=== PATIENT | male | born 1970 | race African-American/Black ===

== ENCOUNTER 2021-11-30 23:15 | Inpatient (IN) | payer OTHER, MEDICAID ==
[~2021-11-30] VITALS: Ht 188 cm; Wt 139.7 kg
[2021-11-30] MEDS ORDERED: IPRATROPIUM BROMIDE (0.02%) 0.5MG/2.5ML NEB HHN STA (23:35)
[2021-11-30] MEDS ORDERED: MAGNESIUM 2 G PREMIX 50 ML IV ONE (23:45)
[2021-11-30] MEDS: ALBUTEROL (0.083%) 2.5MG/3ML NEB HHN SCH (23:52)
[2021-12-01] VITALS (37 sets, daily range): BP systolic 130–189; BP diastolic 74–95
[2021-12-01] MEDS ORDERED: ONDANSETRON HCL 4MG/2ML INJ IV ONE (00:15)
[2021-12-01] MEDS ORDERED: MORPHINE SULFATE 4 MG/ML CPJ (NOT FOR IM USE) IV ONE (00:15)
[2021-12-01 00:35] LABS: BASOPHILS % 0.6 % (0.0-2.0); EOSINOPHILS % 0.8 % (0.0-5.0); HEMATOCRIT. 35.6 % (42.0-52.0); HEMOGLOBIN. 11.7 g/dL (14.0-18.0); MEAN CORPUSCULAR HEMOGLOBIN 28.7 pg (28.0-32.0); MEAN CORPUSCULAR VOLUME 86.8 fL (80.0-94.0); MEAN PLATELET VOLUME 8.8 fl (7.4-10.4); MONOCYTES % 7.1 % (2.0-8.0); NEUTROPHILS % 81.5 % (40.0-76.0); PLATELET 378 x1000/uL (130-400); RED CELL DISTRIBUTION WIDTH 15.1 % (11.6-14.6)
[2021-12-01 00:42] LABS: CHLORIDE 109 mEq/L (98-107)
[2021-12-01 00:58] LABS: BG CARBOXYHEMOGLOBIN 0.1 % (0.5-1.5); BG DEOXYHEMOGLOBIN 1.3 % (0.0-5.0); BG FRACTION INSPIRED OXYGEN 60; BG HCO3 ACT 20.3 mmol/L (22.0-26.0); BG METHEMOGLOBIN 0.5 % (0.0-1.5); BG OXYGEN SATURATION 98.7 % (92.0-98.5); BG OXYHEMOGLOBIN 98.1 % (94.0-97.0); BG PCO2 43.3 mmHg (35.0-45.0); BG PH 7.289 (7.350-7.450); BG SAMPLE SITE RIGHT RADIAL; BG TOTAL HEMOGLOBIN 11.4 g/dL (12.0-18.0); BG VENT MODE T PIECE
[2021-12-01] MEDS ORDERED: PIPERACILLIN/TAZ 3.375G PREMIX 50 ML IV ONE (02:00)
[2021-12-01] MEDS ORDERED: VANCOMYCIN 1G PREMIX 200 ML IV ONE (02:00)
[2021-12-01] MEDS ORDERED: NOREPINEPHRINE 8 MG in DEXT 5% WATER 242 ML IV PRN ×2 (07:30→08:00)
[2021-12-01] MEDS ORDERED: ACETAMINOPHEN 325MG TABLET PO PRN ×2 (07:30)
[2021-12-01] MEDS ORDERED: DEXT 5%/LACTATED RINGERS 1,000 ML IV SCH (07:30)
[2021-12-01] MEDS ORDERED: ONDANSETRON HCL 4MG/2ML INJ IV PRN (07:30)
[2021-12-01] MEDS ORDERED: GUAIFENESIN 200MG/10ML SUGAR FREE UDC PO PRN (07:30)
[2021-12-01] MEDS ORDERED: DEXTROSE 50% WATER 50ML SYRINGE IV PRN (07:30)
[2021-12-01] MEDS ORDERED: KETOROLAC 15MG/ML VIAL IV PRN (07:30)
[2021-12-01] MEDS ORDERED: NITROGLYCERIN 0.4MG TABLET SL SL PRN (07:30)
[2021-12-01] MEDS ORDERED: DOCUSATE SODIUM 100MG CAPSULE PO PRN (07:30)
[2021-12-01] MEDS ORDERED: MAGNESIUM/ALUMINUM HYDROXIDE/SIMETHICONE 30ML UDC PO PRN (07:30)
[2021-12-01] MEDS ORDERED: ALBUTEROL 6.7GM HFA INHALER ORI PRN (07:30)
[2021-12-01] MEDS ORDERED: VANCOMYCIN 1G PREMIX 200 ML IV NR (08:15)
[2021-12-01] MEDS ORDERED: ETOMIDATE 2MG/ML 10ML VIAL IV ONE (08:16)
[2021-12-01] MEDS ORDERED: SODIUM CHLORIDE 0.9% 10ML VIAL ONE (08:16)
[2021-12-01] MEDS: ENOXAPARIN 40MG/0.4ML SYR SUBCUT SCH (08:26)
[2021-12-01] MEDS: BLOOD SUGAR DIAGNOSTIC STRIP TEST SCH ×4 (08:34→20:45)
[2021-12-01] MEDS: CLONIDINE 0.1MG TABLET PO PRN ×2 (08:43→18:27)
[2021-12-01] MEDS: ASPIRIN 325MG EC TABLET PO SCH (09:00)
[2021-12-01] MEDS ORDERED: PIPERACILLIN/TAZ 3.375G PREMIX 50 ML IV SCH (09:00)
[2021-12-01] MEDS: INSULIN LISPRO 100 UNITS/ML SUBCUT SCH ×4 (09:15→20:44)
[2021-12-01] MEDS: LISINOPRIL 20MG TABLET PO SCH ×2 (09:18→20:44)
[2021-12-01] MEDS: ZINC SULFATE 220 MG ( 50 ) CAPSULE PO SCH (09:20)
[2021-12-01] MEDS: CHOLECALCIFEROL (D3) 1000 UNIT TABLET PO SCH (09:26)
[2021-12-01] MEDS: PANTOPRAZOLE SODIUM 40 MG/VIAL IV SCH (09:30)
[2021-12-01 09:35] LABS: *AMPHETAMINES SCREEN URINE NEGATIVE (NEGATIVE); *BARBITURATES SCREEN URINE NEGATIVE (NEGATIVE); *BENZODIAZEPINES SCREEN URINE NEGATIVE (NEGATIVE); *COCAINE SCREEN URINE NEGATIVE (NEGATIVE); METHADONE URINE SCREEN NEGATIVE (NEGATIVE)
[2021-12-01 09:36] LABS: CANNABINOID URINE SCREEN NEGATIVE (NEGATIVE); OPIATES URINE SCREEN PRESUMTIVE POSITIVE (NEGATIVE); PHENCYCLIDINE URINE SCREEN NEGATIVE (NEGATIVE)
[2021-12-01] MEDS: ASCORBIC ACID 500 MG TABLET PO SCH ×2 (09:44→20:44)
[2021-12-01 10:26] LABS: FOLIC ACID (FOLATE) SERUM >20 ng/mL ng/mL (>5.38)
[2021-12-01 10:39] LABS: VITAMIN B12 SERUM 1910 pg/mL (211-911)
[2021-12-01] MEDS ORDERED: IPRATROPIUM/ALBUTEROL 0.5-3(2.5)MG/3ML NEB HHN PRN (12:45)
[2021-12-01 13:43] LABS: PHOSPHORUS 3.5 mg/dL (2.5-4.9)
[2021-12-01] MEDS: ACETYLCYSTEINE 100MG/ML 10% VIAL 4ML INH SCH (16:40)
[2021-12-01] MEDS: IPRATROPIUM/ALBUTEROL 0.5-3(2.5)MG/3ML NEB HHN SCH ×2 (16:41→20:08)
[2021-12-01] MEDS ORDERED: HYDR100T31 PO (17:47)
[2021-12-01] MEDS ORDERED: OMEP20CA14 PO (17:47)
[2021-12-01] MEDS ORDERED: ALLO100T PO (17:47)
[2021-12-01] MEDS ORDERED: ISOS30TA91 PO (17:47)
[2021-12-01] MEDS ORDERED: FURO40TA5 PO (17:47)
[2021-12-01] MEDS ORDERED: AMLO10TA80 PO (17:47)
[2021-12-01] MEDS ORDERED: SEVE2.4P3 PO (17:47)
[2021-12-01] MEDS ORDERED: APIX5TAB PO (17:47)
[2021-12-01] MEDS ORDERED: ATOR40TA70 PO (17:47)
[2021-12-01] MEDS ORDERED: ALBU2.5V13 NEB (17:47)
[2021-12-01] MEDS ORDERED: BLOO-1104 (17:50)
[2021-12-01] MEDS ORDERED: DICL100G31 TP (17:50)
[2021-12-01] MEDS ORDERED: BLOO-1618 (17:50)
[2021-12-01] MEDS ORDERED: POLY119P2 PO (17:50)
[2021-12-01] MEDS ORDERED: NPH,100I SUBCUT (17:50)
[2021-12-01] MEDS ORDERED: LANC-1022 (17:50)
[2021-12-01] MEDS ORDERED: BLOO-1065 XX (17:50)
[2021-12-01] MEDS ORDERED: HYDR-4001 PO (17:50)
[2021-12-01] MEDS: SEVELAMER CARBONATE 800 MG TABLET PO SCH (18:21)
[2021-12-01] MEDS ORDERED: ASPI-1497 MT (19:55)
[2021-12-01] MEDS ORDERED: MULT-1116 MT (19:55)
[2021-12-01] MEDS ORDERED: CHOL400D7 MT (19:55)
[2021-12-01] MEDS ORDERED: ZOLPIDEM TARTRATE 5MG TABLET PO PRN (21:00)
[2021-12-01] MEDS: PIPERACILLIN/TAZOBACTAM 3.375 G in DEXTROSE 5% WATER 50 ML IV SCH (21:55)
[2021-12-02] VITALS (73 sets, daily range): BP systolic 133–219; BP diastolic 71–116
[2021-12-02] MEDS: ACETYLCYSTEINE 100MG/ML 10% VIAL 4ML INH SCH ×3 (00:16→16:40)
[2021-12-02] MEDS: IPRATROPIUM/ALBUTEROL 0.5-3(2.5)MG/3ML NEB HHN SCH ×6 (00:16→20:22)
[2021-12-02 06:04] LABS: BASOPHILS % 0.4 % (0.0-2.0); EOSINOPHILS % 1.2 % (0.0-5.0); HEMATOCRIT. 26.5 % (42.0-52.0); HEMOGLOBIN. 8.9 g/dL (14.0-18.0); LYMPHOCYTES % 12.7 % (20.0-50.0); MEAN CORPUSCULAR VOLUME 89.8 fL (80.0-94.0); MEAN PLATELET VOLUME 8.9 fl (7.4-10.4); MONOCYTES % 10.2 % (2.0-8.0); NEUTROPHILS % 75.5 % (40.0-76.0); PLATELET 338 x1000/uL (130-400); RED BLOOD CELL COUNT 2.95 mill/uL (4.7-6.1); RED CELL DISTRIBUTION WIDTH 15.2 % (11.6-14.6)
[2021-12-02 06:18] LABS: CHLORIDE 112 mEq/L (98-107)
[2021-12-02 06:32] LABS: CREATINE KINASE 112 IU/L (39-308); CREATINE KINASE MB FRACTION < 1.0 ng/mL (0.5-3.6); PHOSPHORUS 3.6 mg/dL (2.5-4.9)
[2021-12-02] MEDS: FOLIC ACID/VITAMIN B COMP W-C TABLET PO SCH (08:27)
[2021-12-02] MEDS: ASCORBIC ACID 500 MG TABLET PO SCH ×2 (08:27→20:42)
[2021-12-02] MEDS: PANTOPRAZOLE SODIUM 40 MG/VIAL IV SCH (08:27)
[2021-12-02] MEDS: ZINC SULFATE 220 MG ( 50 ) CAPSULE PO SCH (08:29)
[2021-12-02] MEDS ORDERED: LORAZEPAM 2MG/ML CPJ IV SCH (08:30)
[2021-12-02] MEDS: SEVELAMER CARBONATE 800 MG TABLET PO SCH ×3 (08:50→17:30)
[2021-12-02] MEDS: CHOLECALCIFEROL (D3) 1000 UNIT TABLET PO SCH (08:50)
[2021-12-02] MEDS: ASPIRIN 325MG EC TABLET PO SCH (08:50)
[2021-12-02] MEDS: LISINOPRIL 20MG TABLET PO SCH ×2 (08:50→20:42)
[2021-12-02] MEDS: ENOXAPARIN 40MG/0.4ML SYR SUBCUT SCH (08:52)
[2021-12-02] MEDS: PIPERACILLIN/TAZOBACTAM 3.375 G in DEXTROSE 5% WATER 50 ML IV SCH ×2 (08:53→20:42)
[2021-12-02] MEDS ORDERED: PROPOFOL 200MG/20ML VIAL IV NR (10:15)
[2021-12-02] MEDS: BLOOD SUGAR DIAGNOSTIC STRIP TEST SCH ×3 (11:30→20:48)
[2021-12-02] MEDS: INSULIN LISPRO 100 UNITS/ML SUBCUT SCH ×3 (11:36→20:53)
[2021-12-02] MEDS: DEXAMETHASONE 10 MG/ML VIAL IV SCH (11:38)
[2021-12-02 18:41] LABS: HEPATITIS B SURFACE ANTIGEN NEGATIVE
[2021-12-02] MEDS ORDERED: VANCOMYCIN 750 MG in DEXT 5% WATER 250 ML IV NR (21:00)
[2021-12-03] VITALS (68 sets, daily range): BP systolic 166–207; BP diastolic 70–107
[2021-12-03] MEDS: IPRATROPIUM/ALBUTEROL 0.5-3(2.5)MG/3ML NEB HHN SCH ×6 (00:21→21:23)
[2021-12-03] MEDS: ACETYLCYSTEINE 100MG/ML 10% VIAL 4ML INH SCH ×3 (00:21→15:46)
[2021-12-03] MEDS: BLOOD SUGAR DIAGNOSTIC STRIP TEST SCH ×4 (06:35→20:44)
[2021-12-03] MEDS: INSULIN LISPRO 100 UNITS/ML SUBCUT SCH ×4 (07:00→20:27)
[2021-12-03] MEDS: SEVELAMER CARBONATE 800 MG TABLET PO SCH ×3 (07:30→17:11)
[2021-12-03] MEDS ORDERED: HYDRALAZINE HCL 25MG TABLET PO SCH (08:00)
[2021-12-03 08:33] LABS: BG BASE EXCESS -2.4 mmol/L (-2.0-2.0); BG CARBOXYHEMOGLOBIN 0.4 % (0.5-1.5); BG DEOXYHEMOGLOBIN 0.7 % (0.0-5.0); BG HCO3 ACT 21.5 mmol/L (22.0-26.0); BG METHEMOGLOBIN 0.4 % (0.0-1.5); BG OXYGEN SATURATION 99.3 % (92.0-98.5); BG OXYHEMOGLOBIN 98.5 % (94.0-97.0); BG PCO2 33.5 mmHg (35.0-45.0); BG PH 7.426 (7.350-7.450); BG PO2 170.5 mmHg (75.0-100.0); BG SAMPLE SITE RIGHT BRACHIAL; BG TOTAL HEMOGLOBIN 9.2 g/dL (12.0-18.0); BG VENT MODE VENT - CPAP
[2021-12-03] MEDS: PIPERACILLIN/TAZOBACTAM 3.375 G in DEXTROSE 5% WATER 50 ML IV SCH ×3 (09:00→20:24)
[2021-12-03] MEDS: ZINC SULFATE 220 MG ( 50 ) CAPSULE PO SCH (09:28)
[2021-12-03] MEDS: DEXAMETHASONE 10 MG/ML VIAL IV SCH (09:28)
[2021-12-03] MEDS: PANTOPRAZOLE SODIUM 40 MG/VIAL IV SCH (09:28)
[2021-12-03] MEDS: FOLIC ACID/VITAMIN B COMP W-C TABLET PO SCH (09:29)
[2021-12-03] MEDS: AMLODIPINE 10MG TABLET PO SCH (09:29)
[2021-12-03] MEDS: ASPIRIN 325MG EC TABLET PO SCH (09:29)
[2021-12-03] MEDS: LISINOPRIL 20MG TABLET PO SCH (09:29)
[2021-12-03] MEDS: ASCORBIC ACID 500 MG TABLET PO SCH ×2 (09:29→20:24)
[2021-12-03] MEDS: CHOLECALCIFEROL (D3) 1000 UNIT TABLET PO SCH (09:29)
[2021-12-03] MEDS: HYDRALAZINE HCL 50MG TABLET PO SCH ×3 (12:01→23:28)
[2021-12-03] MEDS ORDERED: TUBERCULIN,PURIF.PROT.DERIV. 5 TU/0.1 ML SYR ID ONE (18:00)
[2021-12-03] MEDS: CLONIDINE 0.1MG TABLET PO PRN (18:20)
[2021-12-04] VITALS (47 sets, daily range): BP systolic 159–213; BP diastolic 79–108
[2021-12-04] MEDS: ACETYLCYSTEINE 100MG/ML 10% VIAL 4ML INH SCH ×2 (00:45→08:35)
[2021-12-04] MEDS: IPRATROPIUM/ALBUTEROL 0.5-3(2.5)MG/3ML NEB HHN SCH ×3 (00:45→08:43)
[2021-12-04] MEDS: BLOOD SUGAR DIAGNOSTIC STRIP TEST SCH ×4 (06:29→21:16)
[2021-12-04] MEDS: HYDRALAZINE HCL 50MG TABLET PO SCH ×3 (06:32→19:05)
[2021-12-04] MEDS: INSULIN LISPRO 100 UNITS/ML SUBCUT SCH ×4 (06:33→21:16)
[2021-12-04] MEDS: AMLODIPINE 10MG TABLET PO SCH (08:39)
[2021-12-04] MEDS: FOLIC ACID/VITAMIN B COMP W-C TABLET PO SCH (08:39)
[2021-12-04] MEDS: ASPIRIN 325MG EC TABLET PO SCH (08:40)
[2021-12-04] MEDS: DEXAMETHASONE 10 MG/ML VIAL IV SCH (08:40)
[2021-12-04] MEDS: CHOLECALCIFEROL (D3) 1000 UNIT TABLET PO SCH (08:40)
[2021-12-04] MEDS: SEVELAMER CARBONATE 800 MG TABLET PO SCH ×3 (08:40→19:01)
[2021-12-04] MEDS: LISINOPRIL 20MG TABLET PO SCH (08:40)
[2021-12-04] MEDS: ASCORBIC ACID 500 MG TABLET PO SCH ×2 (08:40→21:16)
[2021-12-04] MEDS: ZINC SULFATE 220 MG ( 50 ) CAPSULE PO SCH (08:40)
[2021-12-04] MEDS: PANTOPRAZOLE SODIUM 40 MG/VIAL IV SCH (08:42)
[2021-12-04] MEDS: PIPERACILLIN/TAZOBACTAM 3.375 G in DEXTROSE 5% WATER 50 ML IV SCH ×2 (10:08→22:51)
[2021-12-04 12:18] LABS: HEMATOCRIT. 25.7 % (42.0-52.0); HEMOGLOBIN. 8.4 g/dL (14.0-18.0); MEAN CORPUSCULAR HEMOGLOBIN 28.2 pg (28.0-32.0); MEAN PLATELET VOLUME 8.7 fl (7.4-10.4); PLATELET 376 x1000/uL (130-400); RED BLOOD CELL COUNT 2.98 mill/uL (4.7-6.1); RED CELL DISTRIBUTION WIDTH 15.6 % (11.6-14.6)
[2021-12-04 13:26] LABS: PLATELET ESTIMATE NORMAL
[2021-12-04] MEDS: ALBUTEROL 6.7GM HFA INHALER ORI SCH ×2 (15:00→22:05)
[2021-12-04] MEDS ORDERED: VANCOMYCIN 1G PREMIX 200 ML IV NR (18:00)
[2021-12-04] MEDS: CLONIDINE 0.1MG TABLET PO PRN (19:06)
[2021-12-04] MEDS: DOXAZOSIN MESYLATE 4MG TABLET PO SCH (19:07)
[2021-12-05] VITALS: BP_SYST 158; BP_SYST 178; BP_DIAS 74
[2021-12-05] MEDS: ALBUTEROL 6.7GM HFA INHALER ORI SCH ×4 (00:06→20:42)
[2021-12-05] MEDS: HYDRALAZINE HCL 50MG TABLET PO SCH ×5 (00:06→23:50)
[2021-12-05 04:00] VITALS: BP 155/77
[2021-12-05] MEDS: BLOOD SUGAR DIAGNOSTIC STRIP TEST SCH ×4 (07:22→21:03)
[2021-12-05] MEDS: PIPERACILLIN/TAZOBACTAM 3.375 G in DEXTROSE 5% WATER 50 ML IV SCH ×2 (08:58→20:28)
[2021-12-05] MEDS: PANTOPRAZOLE SODIUM 40 MG/VIAL IV SCH (08:59)
[2021-12-05] MEDS: DEXAMETHASONE 10 MG/ML VIAL IV SCH (08:59)
[2021-12-05] MEDS: ASCORBIC ACID 500 MG TABLET PO SCH ×2 (09:00→21:01)
[2021-12-05] MEDS: AMLODIPINE 10MG TABLET PO SCH (09:00)
[2021-12-05] MEDS: SEVELAMER CARBONATE 800 MG TABLET PO SCH ×3 (09:00→18:58)
[2021-12-05] MEDS: LISINOPRIL 20MG TABLET PO SCH (09:00)
[2021-12-05] MEDS: ZINC SULFATE 220 MG ( 50 ) CAPSULE PO SCH (09:00)
[2021-12-05] MEDS: FOLIC ACID/VITAMIN B COMP W-C TABLET PO SCH (09:00)
[2021-12-05] MEDS: ASPIRIN 325MG EC TABLET PO SCH (09:01)
[2021-12-05] MEDS: CHOLECALCIFEROL (D3) 1000 UNIT TABLET PO SCH (09:01)
[2021-12-05] MEDS: INSULIN LISPRO 100 UNITS/ML SUBCUT SCH ×4 (09:03→21:03)
[2021-12-05 12:00] VITALS: BP 163/86
[2021-12-05] MEDS: CLONIDINE 0.1MG TABLET PO PRN (13:28)
[2021-12-05 16:00] VITALS: BP 137/75
[2021-12-05 20:00] VITALS: BP 146/73
[2021-12-05] MEDS: DOXAZOSIN MESYLATE 4MG TABLET PO SCH (21:02)
[2021-12-06] VITALS: BP 148/73
[2021-12-06] MEDS: ALBUTEROL 6.7GM HFA INHALER ORI SCH ×4 (03:00→20:57)
[2021-12-06 04:00] VITALS: BP 138/76
[2021-12-06] MEDS: HYDRALAZINE HCL 50MG TABLET PO SCH ×3 (05:34→17:52)
[2021-12-06] MEDS: BLOOD SUGAR DIAGNOSTIC STRIP TEST SCH ×4 (07:40→20:57)
[2021-12-06 07:59] LABS: BASOPHILS % 0.3 % (0.0-2.0); EOSINOPHILS % 0.1 % (0.0-5.0); HEMATOCRIT. 26.3 % (42.0-52.0); HEMOGLOBIN. 8.7 g/dL (14.0-18.0); MEAN CORPUSCULAR HEMOGLOBIN 28.4 pg (28.0-32.0); MEAN CORPUSCULAR VOLUME 85.8 fL (80.0-94.0); MEAN PLATELET VOLUME 8.4 fl (7.4-10.4); MONOCYTES % 6.9 % (2.0-8.0); NEUTROPHILS % 83.7 % (40.0-76.0); PLATELET 386 x1000/uL (130-400); RED BLOOD CELL COUNT 3.06 mill/uL (4.7-6.1); RED CELL DISTRIBUTION WIDTH 15.2 % (11.6-14.6)
[2021-12-06 08:00] VITALS: BP 163/71
[2021-12-06] MEDS: PANTOPRAZOLE SODIUM 40 MG/VIAL IV SCH (09:32)
[2021-12-06] MEDS: SEVELAMER CARBONATE 800 MG TABLET PO SCH ×3 (09:32→17:52)
[2021-12-06] MEDS: DEXAMETHASONE 10 MG/ML VIAL IV SCH (09:32)
[2021-12-06] MEDS: LISINOPRIL 20MG TABLET PO SCH (09:33)
[2021-12-06] MEDS: ZINC SULFATE 220 MG ( 50 ) CAPSULE PO SCH (09:33)
[2021-12-06] MEDS: ASCORBIC ACID 500 MG TABLET PO SCH ×2 (09:33→20:57)
[2021-12-06] MEDS: FOLIC ACID/VITAMIN B COMP W-C TABLET PO SCH (09:33)
[2021-12-06] MEDS: AMLODIPINE 10MG TABLET PO SCH (09:33)
[2021-12-06] MEDS: CHOLECALCIFEROL (D3) 1000 UNIT TABLET PO SCH (09:33)
[2021-12-06] MEDS: ASPIRIN 325MG EC TABLET PO SCH (09:33)
[2021-12-06] MEDS: CLONIDINE 0.1MG TABLET PO PRN (09:34)
[2021-12-06] MEDS: INSULIN LISPRO 100 UNITS/ML SUBCUT SCH ×4 (09:36→20:57)
[2021-12-06 12:00] VITALS: BP 157/65
[2021-12-06 16:00] VITALS: BP 132/73
[2021-12-06] MEDS ORDERED: VANCOMYCIN 750 MG in DEXT 5% WATER 250 ML IV SCH (19:00)
[2021-12-06 20:00] VITALS: BP 154/75
[2021-12-06] MEDS: DOXAZOSIN MESYLATE 4MG TABLET PO SCH (20:57)
[2021-12-07] VITALS: BP 157/76
[2021-12-07] MEDS: HYDRALAZINE HCL 50MG TABLET PO SCH ×4 (00:39→17:54)
[2021-12-07] MEDS: ALBUTEROL 6.7GM HFA INHALER ORI SCH ×4 (03:00→22:22)
[2021-12-07 04:00] VITALS: BP 153/86
[2021-12-07] MEDS: BLOOD SUGAR DIAGNOSTIC STRIP TEST SCH ×4 (06:31→21:00)
[2021-12-07] MEDS: INSULIN LISPRO 100 UNITS/ML SUBCUT SCH ×4 (06:54→22:21)
[2021-12-07 07:00] LABS: BASOPHILS % 0.1 % (0.0-2.0); EOSINOPHILS % 0.1 % (0.0-5.0); HEMOGLOBIN. 8.2 g/dL (14.0-18.0); LYMPHOCYTES % 10.3 % (20.0-50.0); MEAN CORPUSCULAR HEMOGLOBIN 29.2 pg (28.0-32.0); MEAN CORPUSCULAR VOLUME 88.4 fL (80.0-94.0); MEAN PLATELET VOLUME 8.4 fl (7.4-10.4); MONOCYTES % 8.1 % (2.0-8.0); NEUTROPHILS % 81.4 % (40.0-76.0); PLATELET 388 x1000/uL (130-400); RED BLOOD CELL COUNT 2.83 mill/uL (4.7-6.1); RED CELL DISTRIBUTION WIDTH 15.2 % (11.6-14.6)
[2021-12-07 08:00] VITALS: BP 118/55
[2021-12-07] MEDS: AMLODIPINE 10MG TABLET PO SCH (09:00)
[2021-12-07] MEDS: LISINOPRIL 20MG TABLET PO SCH (09:52)
[2021-12-07] MEDS: SEVELAMER CARBONATE 800 MG TABLET PO SCH ×3 (09:52→17:33)
[2021-12-07] MEDS: FOLIC ACID/VITAMIN B COMP W-C TABLET PO SCH (09:52)
[2021-12-07] MEDS: ASCORBIC ACID 500 MG TABLET PO SCH ×2 (09:52→22:20)
[2021-12-07] MEDS: ZINC SULFATE 220 MG ( 50 ) CAPSULE PO SCH (09:52)
[2021-12-07] MEDS: CHOLECALCIFEROL (D3) 1000 UNIT TABLET PO SCH (09:52)
[2021-12-07] MEDS: ASPIRIN 325MG EC TABLET PO SCH (09:53)
[2021-12-07] MEDS: DEXAMETHASONE 10 MG/ML VIAL IV SCH (09:53)
[2021-12-07] MEDS: PANTOPRAZOLE SODIUM 40 MG/VIAL IV SCH (09:53)
[2021-12-07 12:00] VITALS: BP 120/66
[2021-12-07 16:00] VITALS: BP 133/67
[2021-12-07 20:00] VITALS: BP 147/59
[2021-12-07] MEDS: DOXAZOSIN MESYLATE 4MG TABLET PO SCH (22:19)
[2021-12-08 00:29] VITALS: BP 147/59
[2021-12-08] MEDS: HYDRALAZINE HCL 50MG TABLET PO SCH ×4 (00:35→18:37)
[2021-12-08 04:00] VITALS: BP 144/63
[2021-12-08] MEDS: ALBUTEROL 6.7GM HFA INHALER ORI SCH ×4 (05:10→21:46)
[2021-12-08] MEDS: BLOOD SUGAR DIAGNOSTIC STRIP TEST SCH ×4 (07:36→21:46)
[2021-12-08] MEDS: INSULIN LISPRO 100 UNITS/ML SUBCUT SCH ×4 (07:37→21:46)
[2021-12-08 08:00] VITALS: BP 118/61
[2021-12-08] MEDS: LISINOPRIL 20MG TABLET PO SCH (09:00)
[2021-12-08] MEDS: AMLODIPINE 10MG TABLET PO SCH (09:00)
[2021-12-08] MEDS: FOLIC ACID/VITAMIN B COMP W-C TABLET PO SCH (09:44)
[2021-12-08] MEDS: ASCORBIC ACID 500 MG TABLET PO SCH ×2 (09:44→21:46)
[2021-12-08] MEDS: PANTOPRAZOLE SODIUM 40 MG/VIAL IV SCH (09:44)
[2021-12-08] MEDS: DEXAMETHASONE 10 MG/ML VIAL IV SCH (09:44)
[2021-12-08] MEDS: SEVELAMER CARBONATE 800 MG TABLET PO SCH ×3 (09:44→18:37)
[2021-12-08] MEDS: ZINC SULFATE 220 MG ( 50 ) CAPSULE PO SCH (09:45)
[2021-12-08] MEDS: CHOLECALCIFEROL (D3) 1000 UNIT TABLET PO SCH (09:45)
[2021-12-08] MEDS: ASPIRIN 325MG TABLET PO SCH (11:18)
[2021-12-08 12:00] VITALS: BP 161/76
[2021-12-08 16:00] VITALS: BP 144/74
[2021-12-08 20:00] VITALS: BP 139/63
[2021-12-08] MEDS: EPOETIN ALFA-EPBX 10,000 UNIT/ML VIAL SUBCUT SCH (21:45)
[2021-12-08] MEDS: DOXAZOSIN MESYLATE 4MG TABLET PO SCH (21:46)
[2021-12-09] VITALS: BP 139/70
[2021-12-09] MEDS: ALBUTEROL 6.7GM HFA INHALER ORI SCH ×4 (03:00→19:59)
[2021-12-09 04:00] VITALS: BP 131/65
[2021-12-09] MEDS: HYDRALAZINE HCL 50MG TABLET PO SCH ×5 (06:25→23:38)
[2021-12-09] MEDS: BLOOD SUGAR DIAGNOSTIC STRIP TEST SCH ×4 (08:07→19:59)
[2021-12-09] MEDS: INSULIN LISPRO 100 UNITS/ML SUBCUT SCH ×4 (08:08→19:59)
[2021-12-09] MEDS: DEXAMETHASONE 10 MG/ML VIAL IV SCH (09:08)
[2021-12-09] MEDS: PANTOPRAZOLE SODIUM 40 MG/VIAL IV SCH (09:08)
[2021-12-09] MEDS: LISINOPRIL 20MG TABLET PO SCH (09:09)
[2021-12-09] MEDS: CHOLECALCIFEROL (D3) 1000 UNIT TABLET PO SCH (09:09)
[2021-12-09] MEDS: AMLODIPINE 10MG TABLET PO SCH (09:10)
[2021-12-09] MEDS: ASPIRIN 325MG TABLET PO SCH (09:10)
[2021-12-09] MEDS: FOLIC ACID/VITAMIN B COMP W-C TABLET PO SCH (09:10)
[2021-12-09] MEDS: ASCORBIC ACID 500 MG TABLET PO SCH ×2 (09:10→19:58)
[2021-12-09] MEDS: SEVELAMER CARBONATE 800 MG TABLET PO SCH ×3 (09:42→17:39)
[2021-12-09] MEDS: ZINC SULFATE 220 MG ( 50 ) CAPSULE PO SCH (09:42)
[2021-12-09 11:42] LABS: BASOPHILS % 0.5 % (0.0-2.0); EOSINOPHILS % 0.3 % (0.0-5.0); HEMATOCRIT. 25.9 % (42.0-52.0); HEMOGLOBIN. 8.6 g/dL (14.0-18.0); LYMPHOCYTES % 7.7 % (20.0-50.0); MEAN CORPUSCULAR HEMOGLOBIN 29.1 pg (28.0-32.0); MEAN CORPUSCULAR VOLUME 87.3 fL (80.0-94.0); MONOCYTES % 4.5 % (2.0-8.0); PLATELET 385 x1000/uL (130-400); RED BLOOD CELL COUNT 2.97 mill/uL (4.7-6.1); RED CELL DISTRIBUTION WIDTH 15.5 % (11.6-14.6)
[2021-12-09 12:00] VITALS: BP 152/66
[2021-12-09] MEDS: DOXAZOSIN MESYLATE 4MG TABLET PO SCH (15:00)
[2021-12-09 16:00] VITALS: BP 150/64
[2021-12-09 17:59] VITALS: BP 135/60
[2021-12-09 20:00] VITALS: BP 155/65
[2021-12-10] VITALS (7 sets, daily range): BP systolic 139–160; BP diastolic 62–74
[2021-12-10] MEDS: ALBUTEROL 6.7GM HFA INHALER ORI SCH ×2 (03:24→09:26)
[2021-12-10] MEDS: HYDRALAZINE HCL 50MG TABLET PO SCH ×3 (06:02→18:15)
[2021-12-10] MEDS: INSULIN LISPRO 100 UNITS/ML SUBCUT SCH ×4 (07:40→22:22)
[2021-12-10] MEDS: BLOOD SUGAR DIAGNOSTIC STRIP TEST SCH ×4 (07:40→21:00)
[2021-12-10] MEDS: ASPIRIN 325MG TABLET PO SCH (09:00)
[2021-12-10] MEDS: DEXAMETHASONE 10 MG/ML VIAL IV SCH (09:23)
[2021-12-10] MEDS: SEVELAMER CARBONATE 800 MG TABLET PO SCH ×3 (09:23→18:15)
[2021-12-10] MEDS: PANTOPRAZOLE SODIUM 40 MG/VIAL IV SCH (09:23)
[2021-12-10] MEDS: ASCORBIC ACID 500 MG TABLET PO SCH ×2 (09:24→21:00)
[2021-12-10] MEDS: FOLIC ACID/VITAMIN B COMP W-C TABLET PO SCH (09:24)
[2021-12-10] MEDS: LISINOPRIL 20MG TABLET PO SCH (09:24)
[2021-12-10] MEDS: CARVEDILOL 6.25 MG TABLET PO SCH ×2 (09:24→21:00)
[2021-12-10] MEDS: CHOLECALCIFEROL (D3) 1000 UNIT TABLET PO SCH (09:25)
[2021-12-10] MEDS: AMLODIPINE 10MG TABLET PO SCH (09:25)
[2021-12-10] MEDS: ZINC SULFATE 220 MG ( 50 ) CAPSULE PO SCH (09:25)
[2021-12-10] MEDS ORDERED: IPRATROPIUM/ALBUTEROL 0.5-3(2.5)MG/3ML NEB HHN PRN (09:45)
[2021-12-10] MEDS: IPRATROPIUM/ALBUTEROL 0.5-3(2.5)MG/3ML NEB HHN SCH ×2 (17:09→21:13)
[2021-12-10] MEDS: DOXAZOSIN MESYLATE 4MG TABLET PO SCH (21:00)
[2021-12-11] VITALS: BP 152/86
[2021-12-11] MEDS: IPRATROPIUM/ALBUTEROL 0.5-3(2.5)MG/3ML NEB HHN SCH ×6 (01:10→20:54)
[2021-12-11] MEDS: EPOETIN ALFA-EPBX 10,000 UNIT/ML VIAL SUBCUT SCH (01:50)
[2021-12-11 04:00] VITALS: BP 164/76
[2021-12-11] MEDS: HYDRALAZINE HCL 50MG TABLET PO SCH ×4 (06:16→18:11)
[2021-12-11] MEDS: BLOOD SUGAR DIAGNOSTIC STRIP TEST SCH ×4 (06:17→21:00)
[2021-12-11] MEDS: INSULIN LISPRO 100 UNITS/ML SUBCUT SCH ×4 (06:17→22:58)
[2021-12-11 08:00] VITALS: BP 170/80
[2021-12-11] MEDS: FOLIC ACID/VITAMIN B COMP W-C TABLET PO SCH (09:00)
[2021-12-11] MEDS: CHOLECALCIFEROL (D3) 1000 UNIT TABLET PO SCH (11:18)
[2021-12-11] MEDS: ASPIRIN 325MG TABLET PO SCH (11:18)
[2021-12-11] MEDS: LISINOPRIL 20MG TABLET PO SCH (11:19)
[2021-12-11] MEDS: AMLODIPINE 10MG TABLET PO SCH (11:19)
[2021-12-11] MEDS: CARVEDILOL 6.25 MG TABLET PO SCH ×2 (11:20→22:51)
[2021-12-11] MEDS: ASCORBIC ACID 500 MG TABLET PO SCH ×2 (11:20→22:59)
[2021-12-11] MEDS: ZINC SULFATE 220 MG ( 50 ) CAPSULE PO SCH (11:20)
[2021-12-11] MEDS: SEVELAMER CARBONATE 800 MG TABLET PO SCH ×3 (11:21→18:11)
[2021-12-11] MEDS: DEXAMETHASONE 10 MG/ML VIAL IV SCH (11:23)
[2021-12-11] MEDS: PANTOPRAZOLE SODIUM 40 MG/VIAL IV SCH (11:23)
[2021-12-11 12:00] VITALS: BP 146/72
[2021-12-11 16:00] VITALS: BP 142/70
[2021-12-11 20:00] VITALS: BP 126/59
[2021-12-11] MEDS: DOXAZOSIN MESYLATE 4MG TABLET PO SCH (22:51)
[2021-12-12] VITALS: BP 127/76
[2021-12-12] MEDS: IPRATROPIUM/ALBUTEROL 0.5-3(2.5)MG/3ML NEB HHN SCH ×6 (00:43→20:51)
[2021-12-12] MEDS: HYDRALAZINE HCL 50MG TABLET PO SCH ×5 (00:46→23:49)
[2021-12-12 04:00] VITALS: BP 141/73
[2021-12-12] MEDS: BLOOD SUGAR DIAGNOSTIC STRIP TEST SCH ×4 (07:40→21:09)
[2021-12-12] MEDS: INSULIN LISPRO 100 UNITS/ML SUBCUT SCH ×4 (07:40→21:33)
[2021-12-12 08:00] VITALS: BP 154/77
[2021-12-12] MEDS: PANTOPRAZOLE SODIUM 40 MG/VIAL IV SCH (08:59)
[2021-12-12] MEDS: CARVEDILOL 6.25 MG TABLET PO SCH ×2 (08:59→21:22)
[2021-12-12] MEDS: ASCORBIC ACID 500 MG TABLET PO SCH ×2 (08:59→21:21)
[2021-12-12] MEDS: ZINC SULFATE 220 MG ( 50 ) CAPSULE PO SCH (08:59)
[2021-12-12] MEDS: ASPIRIN 325MG TABLET PO SCH (08:59)
[2021-12-12] MEDS: FOLIC ACID/VITAMIN B COMP W-C TABLET PO SCH (08:59)
[2021-12-12] MEDS: SEVELAMER CARBONATE 800 MG TABLET PO SCH ×3 (08:59→17:37)
[2021-12-12] MEDS: CHOLECALCIFEROL (D3) 1000 UNIT TABLET PO SCH (08:59)
[2021-12-12] MEDS: AMLODIPINE 10MG TABLET PO SCH (09:00)
[2021-12-12] MEDS: LISINOPRIL 40MG TABLET PO SCH (09:00)
[2021-12-12 12:00] VITALS: BP 133/60
[2021-12-12 16:00] VITALS: BP 137/63
[2021-12-12 20:00] VITALS: BP 152/74
[2021-12-12] MEDS: DOXAZOSIN MESYLATE 4MG TABLET PO SCH (21:21)
[2021-12-12] MEDS: EPOETIN ALFA-EPBX 10,000 UNIT/ML VIAL SUBCUT SCH (23:49)
[2021-12-13] VITALS: BP 134/60
[2021-12-13] MEDS: IPRATROPIUM/ALBUTEROL 0.5-3(2.5)MG/3ML NEB HHN SCH ×6 (00:10→21:46)
[2021-12-13 04:00] VITALS: BP 122/52
[2021-12-13] MEDS: BLOOD SUGAR DIAGNOSTIC STRIP TEST SCH ×4 (06:18→20:54)
[2021-12-13] MEDS: HYDRALAZINE HCL 50MG TABLET PO SCH ×3 (06:20→17:38)
[2021-12-13] MEDS: INSULIN LISPRO 100 UNITS/ML SUBCUT SCH ×4 (07:38→20:54)
[2021-12-13 08:24] VITALS: BP 160/78
[2021-12-13] MEDS: ZINC SULFATE 220 MG ( 50 ) CAPSULE PO SCH (09:03)
[2021-12-13] MEDS: FOLIC ACID/VITAMIN B COMP W-C TABLET PO SCH (09:03)
[2021-12-13] MEDS: AMLODIPINE 10MG TABLET PO SCH (09:03)
[2021-12-13] MEDS: CHOLECALCIFEROL (D3) 1000 UNIT TABLET PO SCH (09:03)
[2021-12-13] MEDS: LISINOPRIL 40MG TABLET PO SCH (09:03)
[2021-12-13] MEDS: PANTOPRAZOLE SODIUM 40 MG/VIAL IV SCH (09:03)
[2021-12-13] MEDS: SEVELAMER CARBONATE 800 MG TABLET PO SCH ×3 (09:03→17:38)
[2021-12-13] MEDS: ASPIRIN 325MG TABLET PO SCH (09:03)
[2021-12-13] MEDS: ASCORBIC ACID 500 MG TABLET PO SCH ×2 (09:03→20:54)
[2021-12-13] MEDS: CARVEDILOL 6.25 MG TABLET PO SCH ×2 (09:04→20:58)
[2021-12-13 12:14] VITALS: BP 119/61
[2021-12-13 15:41] VITALS: BP 128/58
[2021-12-13 20:00] VITALS: BP 123/88
[2021-12-13] MEDS: DOXAZOSIN MESYLATE 4MG TABLET PO SCH (20:54)
[2021-12-14] VITALS: BP 125/70
[2021-12-14] MEDS: IPRATROPIUM/ALBUTEROL 0.5-3(2.5)MG/3ML NEB HHN SCH ×5 (00:07→21:39)
[2021-12-14] MEDS: HYDRALAZINE HCL 50MG TABLET PO SCH ×4 (00:24→17:29)
[2021-12-14 04:00] VITALS: BP 122/59
[2021-12-14] MEDS: BLOOD SUGAR DIAGNOSTIC STRIP TEST SCH ×4 (06:04→21:22)
[2021-12-14] MEDS: INSULIN LISPRO 100 UNITS/ML SUBCUT SCH ×4 (06:04→21:00)
[2021-12-14 08:07] VITALS: BP 123/51
[2021-12-14] MEDS: FOLIC ACID/VITAMIN B COMP W-C TABLET PO SCH (08:29)
[2021-12-14] MEDS: CHOLECALCIFEROL (D3) 1000 UNIT TABLET PO SCH (08:29)
[2021-12-14] MEDS: SEVELAMER CARBONATE 800 MG TABLET PO SCH ×3 (08:29→17:29)
[2021-12-14] MEDS: ASCORBIC ACID 500 MG TABLET PO SCH ×2 (08:29→21:22)
[2021-12-14] MEDS: CARVEDILOL 6.25 MG TABLET PO SCH ×2 (08:29→21:00)
[2021-12-14] MEDS: ASPIRIN 325MG TABLET PO SCH (08:29)
[2021-12-14] MEDS: ZINC SULFATE 220 MG ( 50 ) CAPSULE PO SCH (08:29)
[2021-12-14] MEDS: LISINOPRIL 40MG TABLET PO SCH (08:30)
[2021-12-14] MEDS: AMLODIPINE 10MG TABLET PO SCH (08:30)
[2021-12-14 10:49] LABS: BASOPHILS % 0.4 % (0.0-2.0); EOSINOPHILS % 1.3 % (0.0-5.0); HEMATOCRIT. 23.9 % (42.0-52.0); HEMOGLOBIN. 7.7 g/dL (14.0-18.0); LYMPHOCYTES % 10.6 % (20.0-50.0); MEAN CORPUSCULAR HEMOGLOBIN 27.6 pg (28.0-32.0); MEAN CORPUSCULAR VOLUME 86.3 fL (80.0-94.0); MEAN PLATELET VOLUME 8.5 fl (7.4-10.4); MONOCYTES % 6.4 % (2.0-8.0); NEUTROPHILS % 81.3 % (40.0-76.0); PLATELET 258 x1000/uL (130-400); RED BLOOD CELL COUNT 2.77 mill/uL (4.7-6.1); RED CELL DISTRIBUTION WIDTH 15.7 % (11.6-14.6)
[2021-12-14] MEDS: PANTOPRAZOLE SODIUM 40 MG/VIAL IV SCH (11:21)
[2021-12-14 11:25] LABS: PHOSPHORUS 5.9 mg/dL (2.5-4.9)
[2021-12-14 11:54] VITALS: BP 115/56
[2021-12-14 16:02] VITALS: BP 129/55
[2021-12-14 20:00] VITALS: BP 141/67
[2021-12-14] MEDS: DOXAZOSIN MESYLATE 4MG TABLET PO SCH (21:22)
[2021-12-15] VITALS: BP 138/60
[2021-12-15] MEDS: HYDRALAZINE HCL 50MG TABLET PO SCH ×4 (00:37→17:14)
[2021-12-15] MEDS: IPRATROPIUM/ALBUTEROL 0.5-3(2.5)MG/3ML NEB HHN SCH ×5 (01:24→16:15)
[2021-12-15 04:00] VITALS: BP 134/58
[2021-12-15] MEDS: BLOOD SUGAR DIAGNOSTIC STRIP TEST SCH ×3 (06:21→17:07)
[2021-12-15] MEDS: INSULIN LISPRO 100 UNITS/ML SUBCUT SCH ×4 (06:21→21:21)
[2021-12-15 07:53] VITALS: BP 128/59
[2021-12-15] MEDS: PANTOPRAZOLE SODIUM 40 MG/VIAL IV SCH (08:41)
[2021-12-15] MEDS: FOLIC ACID/VITAMIN B COMP W-C TABLET PO SCH (08:41)
[2021-12-15] MEDS: AMLODIPINE 10MG TABLET PO SCH (08:41)
[2021-12-15] MEDS: ZINC SULFATE 220 MG ( 50 ) CAPSULE PO SCH (08:41)
[2021-12-15] MEDS: LISINOPRIL 40MG TABLET PO SCH (08:41)
[2021-12-15] MEDS: ASCORBIC ACID 500 MG TABLET PO SCH ×2 (08:41→21:19)
[2021-12-15] MEDS: CHOLECALCIFEROL (D3) 1000 UNIT TABLET PO SCH (08:41)
[2021-12-15] MEDS: SEVELAMER CARBONATE 800 MG TABLET PO SCH ×3 (08:42→17:15)
[2021-12-15] MEDS: ASPIRIN 325MG TABLET PO SCH (08:42)
[2021-12-15] MEDS: CARVEDILOL 6.25 MG TABLET PO SCH ×2 (08:42→21:19)
[2021-12-15 12:00] VITALS: BP 119/45
[2021-12-15] MEDS: NYSTATIN POWDER 15GM TOP SCH ×2 (12:47→17:15)
[2021-12-15] MEDS ORDERED: SEVELAMER CARBONATE 800 MG TABLET PO SCH (13:10)
[2021-12-15 16:00] VITALS: BP 130/46
[2021-12-15 20:10] VITALS: BP 150/62
[2021-12-15] MEDS: DOXAZOSIN MESYLATE 4MG TABLET PO SCH (21:19)
[2021-12-16] MEDS: HYDRALAZINE HCL 50MG TABLET PO SCH ×4 (00:27→17:12)
[2021-12-16 00:30] VITALS: BP 139/62
[2021-12-16 04:00] VITALS: BP 132/55
[2021-12-16] MEDS: INSULIN LISPRO 100 UNITS/ML SUBCUT SCH ×4 (07:40→21:00)
[2021-12-16 08:00] VITALS: BP 135/42
[2021-12-16] MEDS: ZINC SULFATE 220 MG ( 50 ) CAPSULE PO SCH (08:39)
[2021-12-16] MEDS: FOLIC ACID/VITAMIN B COMP W-C TABLET PO SCH (08:39)
[2021-12-16] MEDS: SEVELAMER CARBONATE 800 MG TABLET PO SCH ×3 (08:39→17:12)
[2021-12-16] MEDS: ASCORBIC ACID 500 MG TABLET PO SCH ×2 (08:39→20:33)
[2021-12-16] MEDS: PANTOPRAZOLE SODIUM 40 MG/VIAL IV SCH ×2 (08:39→09:00)
[2021-12-16] MEDS: LISINOPRIL 40MG TABLET PO SCH (08:40)
[2021-12-16] MEDS: AMLODIPINE 10MG TABLET PO SCH (08:40)
[2021-12-16] MEDS: ASPIRIN 325MG TABLET PO SCH (08:40)
[2021-12-16] MEDS: CARVEDILOL 6.25 MG TABLET PO SCH ×2 (08:40→20:33)
[2021-12-16] MEDS: CHOLECALCIFEROL (D3) 1000 UNIT TABLET PO SCH (08:42)
[2021-12-16] MEDS: NYSTATIN POWDER 15GM TOP SCH ×4 (08:50→16:10)
[2021-12-16 09:59] LABS: BASOPHILS % 0.7 % (0.0-2.0); EOSINOPHILS % 1.5 % (0.0-5.0); HEMATOCRIT. 23.9 % (42.0-52.0); LYMPHOCYTES % 10.2 % (20.0-50.0); MEAN CORPUSCULAR HEMOGLOBIN 28.8 pg (28.0-32.0); MEAN CORPUSCULAR VOLUME 85.9 fL (80.0-94.0); MEAN PLATELET VOLUME 8.3 fl (7.4-10.4); MONOCYTES % 3.6 % (2.0-8.0); PLATELET 231 x1000/uL (130-400); RED BLOOD CELL COUNT 2.78 mill/uL (4.7-6.1)
[2021-12-16 12:00] VITALS: BP 143/55
[2021-12-16] MEDS: BLOOD SUGAR DIAGNOSTIC STRIP TEST SCH ×3 (12:20→21:36)
[2021-12-16] MEDS: IPRATROPIUM/ALBUTEROL 0.5-3(2.5)MG/3ML NEB HHN SCH ×2 (15:51→21:10)
[2021-12-16 16:00] VITALS: BP 146/50
[2021-12-16 20:00] VITALS: BP 148/66
[2021-12-16] MEDS: DOXAZOSIN MESYLATE 4MG TABLET PO SCH (20:33)
[2021-12-17] VITALS: BP 145/67
[2021-12-17] MEDS: HYDRALAZINE HCL 50MG TABLET PO SCH ×4 (00:40→17:44)
[2021-12-17] MEDS: IPRATROPIUM/ALBUTEROL 0.5-3(2.5)MG/3ML NEB HHN SCH ×7 (01:13→21:06)
[2021-12-17 04:00] VITALS: BP 129/48
[2021-12-17] MEDS: BLOOD SUGAR DIAGNOSTIC STRIP TEST SCH ×4 (06:41→21:47)
[2021-12-17] MEDS: INSULIN LISPRO 100 UNITS/ML SUBCUT SCH ×4 (06:41→21:00)
[2021-12-17 08:00] VITALS: BP 152/62
[2021-12-17] MEDS: ASCORBIC ACID 500 MG TABLET PO SCH ×2 (09:30→21:22)
[2021-12-17] MEDS: ZINC SULFATE 220 MG ( 50 ) CAPSULE PO SCH (09:30)
[2021-12-17] MEDS: FOLIC ACID/VITAMIN B COMP W-C TABLET PO SCH (09:30)
[2021-12-17] MEDS: ASPIRIN 325MG TABLET PO SCH (09:30)
[2021-12-17] MEDS: LISINOPRIL 40MG TABLET PO SCH (09:31)
[2021-12-17] MEDS: AMLODIPINE 10MG TABLET PO SCH (09:31)
[2021-12-17] MEDS: CHOLECALCIFEROL (D3) 1000 UNIT TABLET PO SCH (09:31)
[2021-12-17] MEDS: CARVEDILOL 6.25 MG TABLET PO SCH ×2 (09:32→21:23)
[2021-12-17] MEDS: SEVELAMER CARBONATE 800 MG TABLET PO SCH ×3 (09:32→17:44)
[2021-12-17] MEDS: PANTOPRAZOLE SODIUM 40 MG/VIAL IV SCH (09:32)
[2021-12-17] MEDS: NYSTATIN POWDER 15GM TOP SCH ×3 (09:51→17:45)
[2021-12-17 12:00] VITALS: BP 147/67
[2021-12-17] MEDS ORDERED: TUBERCULIN,PURIF.PROT.DERIV. 5 TU/0.1 ML SYR ID ONE (13:00)
[2021-12-17 16:00] VITALS: BP 132/58
[2021-12-17 20:00] VITALS: BP 150/54
[2021-12-17] MEDS: DOXAZOSIN MESYLATE 4MG TABLET PO SCH (21:23)
[2021-12-18] VITALS: BP 144/64
[2021-12-18] MEDS: HYDRALAZINE HCL 50MG TABLET PO SCH ×4 (00:51→17:31)
[2021-12-18] MEDS: IPRATROPIUM/ALBUTEROL 0.5-3(2.5)MG/3ML NEB HHN SCH ×3 (02:07→19:59)
[2021-12-18 04:00] VITALS: BP 122/48
[2021-12-18] MEDS: BLOOD SUGAR DIAGNOSTIC STRIP TEST SCH ×4 (06:42→21:27)
[2021-12-18] MEDS: INSULIN LISPRO 100 UNITS/ML SUBCUT SCH ×4 (06:42→21:00)
[2021-12-18 08:00] VITALS: BP 113/57
[2021-12-18] MEDS: AMLODIPINE 10MG TABLET PO SCH (09:00)
[2021-12-18] MEDS: CARVEDILOL 6.25 MG TABLET PO SCH ×2 (09:00→21:55)
[2021-12-18] MEDS: LISINOPRIL 40MG TABLET PO SCH (09:00)
[2021-12-18] MEDS: ASCORBIC ACID 500 MG TABLET PO SCH ×2 (09:33→21:54)
[2021-12-18] MEDS: ASPIRIN 325MG TABLET PO SCH (09:33)
[2021-12-18] MEDS: FOLIC ACID/VITAMIN B COMP W-C TABLET PO SCH (09:33)
[2021-12-18] MEDS: ZINC SULFATE 220 MG ( 50 ) CAPSULE PO SCH (09:33)
[2021-12-18] MEDS: SEVELAMER CARBONATE 800 MG TABLET PO SCH ×3 (09:33→17:30)
[2021-12-18] MEDS: PANTOPRAZOLE SODIUM 40 MG/VIAL IV SCH (09:33)
[2021-12-18] MEDS: CHOLECALCIFEROL (D3) 1000 UNIT TABLET PO SCH (09:34)
[2021-12-18] MEDS: NYSTATIN POWDER 15GM TOP SCH ×2 (09:35→12:38)
[2021-12-18 12:00] VITALS: BP 134/56
[2021-12-18 16:00] VITALS: BP 166/54
[2021-12-18 20:00] VITALS: BP 148/61
[2021-12-18] MEDS: DOXAZOSIN MESYLATE 4MG TABLET PO SCH (21:55)
[2021-12-19] VITALS: BP 156/52
[2021-12-19] MEDS: HYDRALAZINE HCL 50MG TABLET PO SCH ×4 (00:30→18:19)
[2021-12-19] MEDS: IPRATROPIUM/ALBUTEROL 0.5-3(2.5)MG/3ML NEB HHN SCH ×5 (01:22→20:58)
[2021-12-19 04:00] VITALS: BP 138/62
[2021-12-19] MEDS: INSULIN LISPRO 100 UNITS/ML SUBCUT SCH ×4 (05:59→21:00)
[2021-12-19] MEDS: BLOOD SUGAR DIAGNOSTIC STRIP TEST SCH ×4 (05:59→21:11)
[2021-12-19 08:17] VITALS: BP 139/62
[2021-12-19] MEDS: ZINC SULFATE 220 MG ( 50 ) CAPSULE PO SCH (09:00)
[2021-12-19] MEDS: SEVELAMER CARBONATE 800 MG TABLET PO SCH ×3 (09:00→18:19)
[2021-12-19] MEDS: PANTOPRAZOLE SODIUM 40 MG/VIAL IV SCH (09:00)
[2021-12-19] MEDS: AMLODIPINE 10MG TABLET PO SCH (09:01)
[2021-12-19] MEDS: CARVEDILOL 6.25 MG TABLET PO SCH ×2 (09:01→21:29)
[2021-12-19] MEDS: ASCORBIC ACID 500 MG TABLET PO SCH ×2 (09:01→21:28)
[2021-12-19] MEDS: ASPIRIN 325MG TABLET PO SCH (09:02)
[2021-12-19] MEDS: CHOLECALCIFEROL (D3) 1000 UNIT TABLET PO SCH (09:02)
[2021-12-19] MEDS: FOLIC ACID/VITAMIN B COMP W-C TABLET PO SCH (09:02)
[2021-12-19] MEDS: LISINOPRIL 40MG TABLET PO SCH (09:02)
[2021-12-19 12:00] VITALS: BP 149/57
[2021-12-19 13:08] LABS: CHLORIDE 107 mEq/L (98-107)
[2021-12-19 16:00] VITALS: BP 156/89
[2021-12-19 20:00] VITALS: BP 161/77
[2021-12-19] MEDS: DOXAZOSIN MESYLATE 4MG TABLET PO SCH (21:28)
[2021-12-20] VITALS: BP 148/70
[2021-12-20] MEDS: HYDRALAZINE HCL 50MG TABLET PO SCH ×4 (00:12→17:49)
[2021-12-20] MEDS: IPRATROPIUM/ALBUTEROL 0.5-3(2.5)MG/3ML NEB HHN SCH ×4 (01:21→14:41)
[2021-12-20 04:00] VITALS: BP 148/52
[2021-12-20] MEDS: INSULIN LISPRO 100 UNITS/ML SUBCUT SCH ×4 (06:29→20:40)
[2021-12-20] MEDS: BLOOD SUGAR DIAGNOSTIC STRIP TEST SCH ×4 (06:29→20:40)
[2021-12-20 08:00] VITALS: BP 154/59
[2021-12-20] MEDS: ASPIRIN 325MG TABLET PO SCH (09:17)
[2021-12-20] MEDS: PANTOPRAZOLE SODIUM 40 MG/VIAL IV SCH (09:17)
[2021-12-20] MEDS: AMLODIPINE 10MG TABLET PO SCH (09:18)
[2021-12-20] MEDS: FOLIC ACID/VITAMIN B COMP W-C TABLET PO SCH (09:18)
[2021-12-20] MEDS: ASCORBIC ACID 500 MG TABLET PO SCH ×2 (09:19→20:39)
[2021-12-20] MEDS: CARVEDILOL 6.25 MG TABLET PO SCH ×2 (09:19→20:39)
[2021-12-20] MEDS: CHOLECALCIFEROL (D3) 1000 UNIT TABLET PO SCH (09:19)
[2021-12-20] MEDS: ZINC SULFATE 220 MG ( 50 ) CAPSULE PO SCH (09:20)
[2021-12-20] MEDS: LISINOPRIL 40MG TABLET PO SCH (09:20)
[2021-12-20] MEDS: SEVELAMER CARBONATE 800 MG TABLET PO SCH ×3 (09:20→17:49)
[2021-12-20 12:00] VITALS: BP 133/41
[2021-12-20 12:32] LABS: EOSINOPHILS % 2.7 % (0.0-5.0); HEMATOCRIT. 23.3 % (42.0-52.0); HEMOGLOBIN. 7.6 g/dL (14.0-18.0); LYMPHOCYTES % 12.7 % (20.0-50.0); MEAN CORPUSCULAR HEMOGLOBIN 28.4 pg (28.0-32.0); MEAN CORPUSCULAR VOLUME 87.3 fL (80.0-94.0); MEAN PLATELET VOLUME 8.2 fl (7.4-10.4); MONOCYTES % 6.8 % (2.0-8.0); NEUTROPHILS % 76.8 % (40.0-76.0); PLATELET 189 x1000/uL (130-400); RED BLOOD CELL COUNT 2.67 mill/uL (4.7-6.1); RED CELL DISTRIBUTION WIDTH 16.9 % (11.6-14.6)
[2021-12-20 16:00] VITALS: BP 132/68
[2021-12-20 20:00] VITALS: BP 156/64
[2021-12-20] MEDS: DOXAZOSIN MESYLATE 4MG TABLET PO SCH (20:39)
[2021-12-21] VITALS: BP 147/57
[2021-12-21] MEDS: HYDRALAZINE HCL 50MG TABLET PO SCH ×4 (00:17→17:02)
[2021-12-21] MEDS: IPRATROPIUM/ALBUTEROL 0.5-3(2.5)MG/3ML NEB HHN SCH ×5 (00:59→15:19)
[2021-12-21 04:00] VITALS: BP 135/61
[2021-12-21] MEDS: BLOOD SUGAR DIAGNOSTIC STRIP TEST SCH ×4 (05:40→21:35)
[2021-12-21] MEDS: INSULIN LISPRO 100 UNITS/ML SUBCUT SCH ×4 (05:40→21:00)
[2021-12-21 08:00] VITALS: BP 132/47
[2021-12-21] MEDS: ASPIRIN 325MG TABLET PO SCH (08:12)
[2021-12-21] MEDS: FOLIC ACID/VITAMIN B COMP W-C TABLET PO SCH (08:12)
[2021-12-21] MEDS: CARVEDILOL 6.25 MG TABLET PO SCH (08:12)
[2021-12-21] MEDS: CHOLECALCIFEROL (D3) 1000 UNIT TABLET PO SCH (08:12)
[2021-12-21] MEDS: SEVELAMER CARBONATE 800 MG TABLET PO SCH ×3 (08:13→17:02)
[2021-12-21] MEDS: LISINOPRIL 40MG TABLET PO SCH (08:13)
[2021-12-21] MEDS: PANTOPRAZOLE SODIUM 40 MG/VIAL IV SCH (08:13)
[2021-12-21] MEDS: AMLODIPINE 10MG TABLET PO SCH (08:13)
[2021-12-21] MEDS: ASCORBIC ACID 500 MG TABLET PO SCH ×2 (08:13→21:43)
[2021-12-21] MEDS: ZINC SULFATE 220 MG ( 50 ) CAPSULE PO SCH (08:13)
[2021-12-21] MEDS ORDERED: CARVEDILOL 3.125 MG TABLET PO SCH (09:00)
[2021-12-21 12:00] VITALS: BP 122/50
[2021-12-21 16:00] VITALS: BP 118/55
[2021-12-21 20:00] VITALS: BP 136/54
[2021-12-21] MEDS: CARVEDILOL 3.125 MG TABLET PO SCH (21:43)
[2021-12-21] MEDS: DOXAZOSIN MESYLATE 4MG TABLET PO SCH (21:43)
[2021-12-22] VITALS: BP 128/60
[2021-12-22] MEDS: HYDRALAZINE HCL 50MG TABLET PO SCH ×4 (00:56→17:22)
[2021-12-22 04:00] VITALS: BP 104/62
[2021-12-22] MEDS: IPRATROPIUM/ALBUTEROL 0.5-3(2.5)MG/3ML NEB HHN SCH ×5 (04:40→20:34)
[2021-12-22] MEDS: BLOOD SUGAR DIAGNOSTIC STRIP TEST SCH ×4 (06:06→21:00)
[2021-12-22] MEDS: INSULIN LISPRO 100 UNITS/ML SUBCUT SCH ×4 (06:07→21:00)
[2021-12-22 08:00] VITALS: BP 137/47
[2021-12-22] MEDS: SEVELAMER CARBONATE 800 MG TABLET PO SCH ×3 (08:51→17:21)
[2021-12-22] MEDS: FOLIC ACID/VITAMIN B COMP W-C TABLET PO SCH (08:52)
[2021-12-22] MEDS: LISINOPRIL 40MG TABLET PO SCH (08:52)
[2021-12-22] MEDS: ASPIRIN 325MG TABLET PO SCH (08:52)
[2021-12-22] MEDS: CHOLECALCIFEROL (D3) 1000 UNIT TABLET PO SCH (08:52)
[2021-12-22] MEDS: ASCORBIC ACID 500 MG TABLET PO SCH ×2 (08:52→20:59)
[2021-12-22] MEDS: ZINC SULFATE 220 MG ( 50 ) CAPSULE PO SCH (08:52)
[2021-12-22] MEDS: CARVEDILOL 3.125 MG TABLET PO SCH ×2 (08:53→20:59)
[2021-12-22] MEDS: PANTOPRAZOLE SODIUM 40 MG/VIAL IV SCH (08:53)
[2021-12-22] MEDS: AMLODIPINE 10MG TABLET PO SCH (08:53)
[2021-12-22 12:00] VITALS: BP 137/56
[2021-12-22 16:00] VITALS: BP 131/69
[2021-12-22 20:00] VITALS: BP 149/63
[2021-12-22] MEDS: DOXAZOSIN MESYLATE 4MG TABLET PO SCH (20:59)
[2021-12-23] VITALS: BP 156/57
[2021-12-23] MEDS: HYDRALAZINE HCL 50MG TABLET PO SCH ×4 (00:38→17:31)
[2021-12-23] MEDS: IPRATROPIUM/ALBUTEROL 0.5-3(2.5)MG/3ML NEB HHN SCH ×5 (00:56→21:37)
[2021-12-23 04:00] VITALS: BP 155/56
[2021-12-23] MEDS: BLOOD SUGAR DIAGNOSTIC STRIP TEST SCH ×4 (05:32→21:27)
[2021-12-23] MEDS: INSULIN LISPRO 100 UNITS/ML SUBCUT SCH ×4 (05:32→21:00)
[2021-12-23] MEDS ORDERED: DOCUSATE SODIUM SUGAR FREE 100MG/10ML UDC PO PRN (07:45)
[2021-12-23 08:00] VITALS: BP 161/61
[2021-12-23] MEDS: PANTOPRAZOLE SODIUM 40 MG/VIAL IV SCH (08:57)
[2021-12-23] MEDS: ASPIRIN 325MG TABLET PO SCH (08:57)
[2021-12-23] MEDS: LISINOPRIL 40MG TABLET PO SCH (08:57)
[2021-12-23] MEDS: CHOLECALCIFEROL (D3) 1000 UNIT TABLET PO SCH (08:57)
[2021-12-23] MEDS: AMLODIPINE 10MG TABLET PO SCH (08:57)
[2021-12-23] MEDS: CARVEDILOL 3.125 MG TABLET PO SCH ×2 (08:58→21:27)
[2021-12-23] MEDS: ASCORBIC ACID 500 MG TABLET PO SCH ×2 (08:58→21:27)
[2021-12-23] MEDS: SEVELAMER CARBONATE 800 MG TABLET PO SCH ×3 (08:58→17:31)
[2021-12-23] MEDS: ZINC SULFATE 220 MG ( 50 ) CAPSULE PO SCH (08:58)
[2021-12-23] MEDS: FOLIC ACID/VITAMIN B COMP W-C TABLET PO SCH (08:58)
[2021-12-23 12:00] VITALS: BP 135/68
[2021-12-23 15:50] LABS: EOSINOPHILS % 3.3 % (0.0-5.0); HEMATOCRIT. 22.4 % (42.0-52.0); HEMOGLOBIN. 7.1 g/dL (14.0-18.0); MEAN CORPUSCULAR HEMOGLOBIN 28.1 pg (28.0-32.0); MEAN CORPUSCULAR VOLUME 88.8 fL (80.0-94.0); MEAN PLATELET VOLUME 8.6 fl (7.4-10.4); MONOCYTES % 6.2 % (2.0-8.0); NEUTROPHILS % 74.5 % (40.0-76.0); PLATELET 157 x1000/uL (130-400); RED BLOOD CELL COUNT 2.53 mill/uL (4.7-6.1); RED CELL DISTRIBUTION WIDTH 17.3 % (11.6-14.6)
[2021-12-23 16:00] VITALS: BP 134/42
[2021-12-23 16:04] LABS: INR 0.9; PROTHROMBIN TIME 10.1 sec (9.6-11.0)
[2021-12-23] MEDS: DOXAZOSIN MESYLATE 4MG TABLET PO SCH (21:27)
[2021-12-24] VITALS (37 sets, daily range): BP systolic 60–172; BP diastolic 54–87
[2021-12-24] MEDS: HYDRALAZINE HCL 50MG TABLET PO SCH ×4 (00:46→18:05)
[2021-12-24] MEDS: IPRATROPIUM/ALBUTEROL 0.5-3(2.5)MG/3ML NEB HHN SCH ×6 (01:41→21:13)
[2021-12-24] MEDS: BLOOD SUGAR DIAGNOSTIC STRIP TEST SCH ×4 (05:51→20:44)
[2021-12-24] MEDS: INSULIN LISPRO 100 UNITS/ML SUBCUT SCH ×4 (05:51→20:44)
[2021-12-24] MEDS ORDERED: LIDOCAINE HCL 1% 20ML VIAL (Pyxis) INJ ONE ×2 (07:02→09:09)
[2021-12-24] MEDS ORDERED: HEPARIN 1000 UNITS/ML 10ML ONE (07:03)
[2021-12-24] MEDS ORDERED: IOHEXOL-300 100 ML BOTTLE ONE (07:03)
[2021-12-24] MEDS ORDERED: ALTEPLASE 2MG/VIAL ITC SCH (07:15)
[2021-12-24] MEDS ORDERED: FENTANYL CITRATE/PF 50MCG/ML 2ML VIAL IV ONE (07:26)
[2021-12-24] MEDS ORDERED: FENTANYL CITRATE/PF 50MCG/ML 2ML VIAL ONE (07:26)
[2021-12-24] MEDS: SEVELAMER CARBONATE 800 MG TABLET PO SCH ×3 (08:10→18:04)
[2021-12-24] MEDS ORDERED: CEFAZOLIN 1000MG PREMIX 50 ML IV ONE (08:10)
[2021-12-24] MEDS ORDERED: CEFAZOLIN 1000MG PREMIX 50 ML IV NR (08:10)
[2021-12-24] MEDS: CARVEDILOL 3.125 MG TABLET PO SCH ×2 (09:00→20:43)
[2021-12-24] MEDS: CHOLECALCIFEROL (D3) 1000 UNIT TABLET PO SCH (09:00)
[2021-12-24] MEDS: FOLIC ACID/VITAMIN B COMP W-C TABLET PO SCH (09:00)
[2021-12-24] MEDS: ASCORBIC ACID 500 MG TABLET PO SCH ×2 (09:00→20:43)
[2021-12-24] MEDS: AMLODIPINE 10MG TABLET PO SCH (09:00)
[2021-12-24] MEDS: PANTOPRAZOLE SODIUM 40 MG/VIAL IV SCH (09:00)
[2021-12-24] MEDS: LISINOPRIL 40MG TABLET PO SCH (09:00)
[2021-12-24] MEDS: ASPIRIN 325MG TABLET PO SCH (09:00)
[2021-12-24] MEDS: ZINC SULFATE 220 MG ( 50 ) CAPSULE PO SCH (09:00)
[2021-12-24] MEDS: DOXAZOSIN MESYLATE 4MG TABLET PO SCH (20:44)
[2021-12-25] VITALS: BP 155/50
[2021-12-25] MEDS: IPRATROPIUM/ALBUTEROL 0.5-3(2.5)MG/3ML NEB HHN SCH ×5 (00:48→21:40)
[2021-12-25 04:00] VITALS: BP 157/60
[2021-12-25] MEDS: HYDRALAZINE HCL 50MG TABLET PO SCH ×4 (06:00→17:46)
[2021-12-25] MEDS: INSULIN LISPRO 100 UNITS/ML SUBCUT SCH ×4 (06:11→20:17)
[2021-12-25] MEDS: BLOOD SUGAR DIAGNOSTIC STRIP TEST SCH ×4 (06:11→20:17)
[2021-12-25 08:00] VITALS: BP 157/66
[2021-12-25] MEDS: PANTOPRAZOLE SODIUM 40 MG/VIAL IV SCH (10:11)
[2021-12-25] MEDS: CHOLECALCIFEROL (D3) 1000 UNIT TABLET PO SCH (10:12)
[2021-12-25] MEDS: SEVELAMER CARBONATE 800 MG TABLET PO SCH ×3 (10:12→17:46)
[2021-12-25] MEDS: AMLODIPINE 10MG TABLET PO SCH (10:12)
[2021-12-25] MEDS: ASPIRIN 325MG TABLET PO SCH (10:12)
[2021-12-25] MEDS: ZINC SULFATE 220 MG ( 50 ) CAPSULE PO SCH (10:12)
[2021-12-25] MEDS: FOLIC ACID/VITAMIN B COMP W-C TABLET PO SCH (10:12)
[2021-12-25] MEDS: CARVEDILOL 3.125 MG TABLET PO SCH ×2 (10:13→20:45)
[2021-12-25] MEDS: ASCORBIC ACID 500 MG TABLET PO SCH ×2 (10:13→20:44)
[2021-12-25] MEDS: LISINOPRIL 40MG TABLET PO SCH (10:14)
[2021-12-25 12:00] VITALS: BP 145/72
[2021-12-25 16:00] VITALS: BP 120/64
[2021-12-25 20:00] VITALS: BP 134/67
[2021-12-25] MEDS: DOXAZOSIN MESYLATE 2MG TABLET PO SCH (20:44)
[2021-12-26] VITALS: BP 138/66
[2021-12-26] MEDS: HYDRALAZINE HCL 50MG TABLET PO SCH ×5 (00:05→23:52)
[2021-12-26] MEDS: IPRATROPIUM/ALBUTEROL 0.5-3(2.5)MG/3ML NEB HHN SCH ×5 (02:08→20:00)
[2021-12-26 04:00] VITALS: BP 144/67
[2021-12-26] MEDS: BLOOD SUGAR DIAGNOSTIC STRIP TEST SCH ×4 (06:20→21:04)
[2021-12-26] MEDS: INSULIN LISPRO 100 UNITS/ML SUBCUT SCH ×4 (06:20→21:00)
[2021-12-26 08:00] VITALS: BP 162/76
[2021-12-26] MEDS: SEVELAMER CARBONATE 800 MG TABLET PO SCH ×3 (09:32→18:07)
[2021-12-26] MEDS: ASPIRIN 325MG TABLET PO SCH (09:32)
[2021-12-26] MEDS: ASCORBIC ACID 500 MG TABLET PO SCH ×2 (09:32→21:04)
[2021-12-26] MEDS: ZINC SULFATE 220 MG ( 50 ) CAPSULE PO SCH (09:32)
[2021-12-26] MEDS: CHOLECALCIFEROL (D3) 1000 UNIT TABLET PO SCH (09:32)
[2021-12-26] MEDS: PANTOPRAZOLE SODIUM 40 MG/VIAL IV SCH (09:32)
[2021-12-26] MEDS: LISINOPRIL 40MG TABLET PO SCH (09:32)
[2021-12-26] MEDS: FOLIC ACID/VITAMIN B COMP W-C TABLET PO SCH (09:32)
[2021-12-26] MEDS: AMLODIPINE 10MG TABLET PO SCH (09:33)
[2021-12-26] MEDS: CARVEDILOL 3.125 MG TABLET PO SCH ×2 (09:33→21:00)
[2021-12-26 12:00] VITALS: BP 142/81
[2021-12-26 16:00] VITALS: BP 120/66
[2021-12-26 20:00] VITALS: BP 142/52
[2021-12-26] MEDS: DOXAZOSIN MESYLATE 2MG TABLET PO SCH (21:07)
[2021-12-27] VITALS (7 sets, daily range): BP systolic 123–150; BP diastolic 58–73
[2021-12-27] MEDS: IPRATROPIUM/ALBUTEROL 0.5-3(2.5)MG/3ML NEB HHN SCH ×5 (00:35→19:58)
[2021-12-27] MEDS: HYDRALAZINE HCL 50MG TABLET PO SCH ×3 (05:42→18:07)
[2021-12-27] MEDS: BLOOD SUGAR DIAGNOSTIC STRIP TEST SCH ×4 (05:42→21:00)
[2021-12-27] MEDS: INSULIN LISPRO 100 UNITS/ML SUBCUT SCH ×4 (05:42→21:00)
[2021-12-27] MEDS: PANTOPRAZOLE SODIUM 40 MG/VIAL IV SCH (09:12)
[2021-12-27] MEDS: LISINOPRIL 40MG TABLET PO SCH (09:13)
[2021-12-27] MEDS: FOLIC ACID/VITAMIN B COMP W-C TABLET PO SCH (09:13)
[2021-12-27] MEDS: ASPIRIN 325MG TABLET PO SCH (09:13)
[2021-12-27] MEDS: SEVELAMER CARBONATE 800 MG TABLET PO SCH ×3 (09:13→18:10)
[2021-12-27] MEDS: CARVEDILOL 3.125 MG TABLET PO SCH ×2 (09:13→22:12)
[2021-12-27] MEDS: ASCORBIC ACID 500 MG TABLET PO SCH ×2 (09:13→22:11)
[2021-12-27] MEDS: AMLODIPINE 10MG TABLET PO SCH (09:14)
[2021-12-27] MEDS: CHOLECALCIFEROL (D3) 1000 UNIT TABLET PO SCH (09:14)
[2021-12-27] MEDS: ZINC SULFATE 220 MG ( 50 ) CAPSULE PO SCH (09:43)
[2021-12-27] MEDS: DOXAZOSIN MESYLATE 2MG TABLET PO SCH (22:11)
[2021-12-28] VITALS (9 sets, daily range): BP systolic 118–139; BP diastolic 53–67
[2021-12-28] MEDS: HYDRALAZINE HCL 50MG TABLET PO SCH ×4 (00:42→19:14)
[2021-12-28] MEDS: BLOOD SUGAR DIAGNOSTIC STRIP TEST SCH ×4 (07:02→21:22)
[2021-12-28] MEDS: INSULIN LISPRO 100 UNITS/ML SUBCUT SCH ×4 (07:03→21:00)
[2021-12-28] MEDS: AMLODIPINE 10MG TABLET PO SCH (09:00)
[2021-12-28] MEDS: LISINOPRIL 40MG TABLET PO SCH (09:00)
[2021-12-28] MEDS: CARVEDILOL 3.125 MG TABLET PO SCH ×2 (09:00→21:32)
[2021-12-28] MEDS: IPRATROPIUM/ALBUTEROL 0.5-3(2.5)MG/3ML NEB HHN SCH ×5 (09:47→22:24)
[2021-12-28] MEDS: ZINC SULFATE 220 MG ( 50 ) CAPSULE PO SCH (10:02)
[2021-12-28] MEDS: SEVELAMER CARBONATE 800 MG TABLET PO SCH ×3 (10:03→18:10)
[2021-12-28] MEDS: PANTOPRAZOLE SODIUM 40 MG/VIAL IV SCH (10:03)
[2021-12-28] MEDS: ASCORBIC ACID 500 MG TABLET PO SCH ×2 (10:03→21:32)
[2021-12-28] MEDS: ASPIRIN 325MG TABLET PO SCH (10:04)
[2021-12-28] MEDS: FOLIC ACID/VITAMIN B COMP W-C TABLET PO SCH (10:04)
[2021-12-28] MEDS: CHOLECALCIFEROL (D3) 1000 UNIT TABLET PO SCH (10:05)
[2021-12-28 10:44] LABS: BASOPHILS % 1.2 % (0.0-2.0); EOSINOPHILS % 3.7 % (0.0-5.0); LYMPHOCYTES % 18.7 % (20.0-50.0); MEAN CORPUSCULAR HEMOGLOBIN 29.1 pg (28.0-32.0); MEAN PLATELET VOLUME 8.4 fl (7.4-10.4); MONOCYTES % 6.2 % (2.0-8.0); NEUTROPHILS % 70.2 % (40.0-76.0); PLATELET 183 x1000/uL (130-400); RED BLOOD CELL COUNT 2.26 mill/uL (4.7-6.1); RED CELL DISTRIBUTION WIDTH 16.6 % (11.6-14.6)
[2021-12-28 11:26] LABS: HEMATOCRIT. 20.1 % (42.0-52.0); HEMOGLOBIN. 6.6 g/dL (14.0-18.0)
[2021-12-28] MEDS: DOXAZOSIN MESYLATE 2MG TABLET PO SCH (21:32)
[2021-12-29] VITALS (14 sets, daily range): BP systolic 123–162; BP diastolic 50–82
[2021-12-29] MEDS: HYDRALAZINE HCL 50MG TABLET PO SCH ×4 (00:24→17:05)
[2021-12-29] MEDS: IPRATROPIUM/ALBUTEROL 0.5-3(2.5)MG/3ML NEB HHN SCH ×6 (04:00→21:51)
[2021-12-29] MEDS: INSULIN LISPRO 100 UNITS/ML SUBCUT SCH (05:46)
[2021-12-29] MEDS: BLOOD SUGAR DIAGNOSTIC STRIP TEST SCH (05:46)
[2021-12-29 08:03] LABS: HEMOGLOBIN 6.7 g/dL (14.0-18.0)
[2021-12-29 08:04] LABS: HEMATOCRIT 20.2 % (42.0-52.0)
[2021-12-29] MEDS: CHOLECALCIFEROL (D3) 1000 UNIT TABLET PO SCH (09:05)
[2021-12-29] MEDS: ZINC SULFATE 220 MG ( 50 ) CAPSULE PO SCH (09:05)
[2021-12-29] MEDS: ASPIRIN 325MG TABLET PO SCH (09:05)
[2021-12-29] MEDS: ASCORBIC ACID 500 MG TABLET PO SCH (09:07)
[2021-12-29] MEDS: FOLIC ACID/VITAMIN B COMP W-C TABLET PO SCH (09:07)
[2021-12-29] MEDS: CARVEDILOL 3.125 MG TABLET PO SCH ×2 (09:08→22:12)
[2021-12-29] MEDS: LISINOPRIL 40MG TABLET PO SCH (09:08)
[2021-12-29] MEDS: AMLODIPINE 10MG TABLET PO SCH (09:08)
[2021-12-29] MEDS: PANTOPRAZOLE SODIUM 40 MG/VIAL IV SCH (09:08)
[2021-12-29] MEDS: SEVELAMER CARBONATE 800 MG TABLET PO SCH ×3 (09:09→17:06)
[2021-12-29] MEDS ORDERED: SENNOSIDES 8.6MG TABLET PO PRN (13:00)
[2021-12-29] MEDS ORDERED: BISACODYL 10MG SUPP PR NR (13:22)
[2021-12-29] MEDS ORDERED: POLYETHYLENE GLYCOL 3350 (17GM) 1 DOSE PACK PO NR (13:23)
[2021-12-29] MEDS: DOCUSATE SODIUM 100MG CAPSULE PO SCH (17:00)
[2021-12-29 22:07] LABS: BASOPHILS % 0.9 % (0.0-2.0); EOSINOPHILS % 4.1 % (0.0-5.0); HEMATOCRIT. 25.6 % (42.0-52.0); HEMOGLOBIN. 8.2 g/dL (14.0-18.0); LYMPHOCYTES % 16.9 % (20.0-50.0); MEAN CORPUSCULAR HEMOGLOBIN 28.4 pg (28.0-32.0); MEAN PLATELET VOLUME 8.4 fl (7.4-10.4); MONOCYTES % 8.5 % (2.0-8.0); NEUTROPHILS % 69.6 % (40.0-76.0); PLATELET 205 x1000/uL (130-400); RED BLOOD CELL COUNT 2.91 mill/uL (4.7-6.1); RED CELL DISTRIBUTION WIDTH 16.7 % (11.6-14.6)
[2021-12-29] MEDS: DOXAZOSIN MESYLATE 2MG TABLET PO SCH (22:18)
[2021-12-29 22:20] LABS: PROTHROMBIN TIME 10.9 sec (9.6-11.0)
[2021-12-29 22:23] LABS: TOTAL IRON BINDING CAPACITY 151 ug/dL (250-450)
[2021-12-29 22:37] LABS: FOLIC ACID (FOLATE) SERUM 10.8 ng/mL (>5.38)
[2021-12-30] VITALS (7 sets, daily range): BP systolic 140–168; BP diastolic 60–82
[2021-12-30] MEDS: HYDRALAZINE HCL 50MG TABLET PO SCH ×4 (00:49→17:52)
[2021-12-30] MEDS: IPRATROPIUM/ALBUTEROL 0.5-3(2.5)MG/3ML NEB HHN SCH ×4 (09:24→21:17)
[2021-12-30] MEDS: ASPIRIN 325MG TABLET PO SCH (09:46)
[2021-12-30] MEDS: FOLIC ACID/VITAMIN B COMP W-C TABLET PO SCH (09:46)
[2021-12-30] MEDS: LISINOPRIL 40MG TABLET PO SCH (09:48)
[2021-12-30] MEDS: DOCUSATE SODIUM 100MG CAPSULE PO SCH ×2 (09:48→17:00)
[2021-12-30] MEDS: CARVEDILOL 3.125 MG TABLET PO SCH ×2 (09:48→20:48)
[2021-12-30] MEDS: AMLODIPINE 10MG TABLET PO SCH (09:48)
[2021-12-30 09:49] LABS: BASOPHILS % 0.8 % (0.0-2.0); EOSINOPHILS % 2.7 % (0.0-5.0); HEMATOCRIT. 26.8 % (42.0-52.0); HEMOGLOBIN. 8.7 g/dL (14.0-18.0); LYMPHOCYTES % 12.3 % (20.0-50.0); MEAN CORPUSCULAR HEMOGLOBIN 28.5 pg (28.0-32.0); MEAN CORPUSCULAR VOLUME 87.5 fL (80.0-94.0); MEAN PLATELET VOLUME 8.3 fl (7.4-10.4); MONOCYTES % 7.1 % (2.0-8.0); NEUTROPHILS % 77.1 % (40.0-76.0); PLATELET 221 x1000/uL (130-400); RED BLOOD CELL COUNT 3.06 mill/uL (4.7-6.1); RED CELL DISTRIBUTION WIDTH 16.8 % (11.6-14.6)
[2021-12-30] MEDS ORDERED: ONDANSETRON HCL 4MG/2ML INJ IV NR (10:45)
[2021-12-30] MEDS: DOXAZOSIN MESYLATE 2MG TABLET PO SCH (20:47)
[2021-12-31] VITALS: BP 164/92
[2021-12-31] MEDS: HYDRALAZINE HCL 50MG TABLET PO SCH ×2 (00:23→00:59)
[2021-12-31] MEDS: IPRATROPIUM/ALBUTEROL 0.5-3(2.5)MG/3ML NEB HHN SCH (00:45)
== END 2021-12-31 01:58 | disposition home or self-care (01) | DRG 853 ==
LOC: ER 23:15 → MICUSO 12-01 04:46 → EDBEDREQ 12-01 04:49 → EDBEDREQTM 12-01 04:49 → ENRESERV 12-01 09:55 → 7WST 12-04 16:03 → 8WST 12-10 12:58
PROVIDERS: ADMIT Internal Medicine; ATTEND Internal Medicine
PROC: 5A1945Z Respiratory Ventilation, 24-96 Consecutive Hours (ICD-10-PCS; principal; 2021-12-01)
PROC: 0BH17EZ Insertion of Endotracheal Airway into Trachea, Via Natural or Artificial Opening (ICD-10-PCS; 2021-12-01)
PROC: 0WQ6XZ2 Repair Neck, Stoma, External Approach (ICD-10-PCS; 2021-12-02)
PROC: 0B21XFZ Change Tracheostomy Device in Trachea, External Approach (ICD-10-PCS; 2021-12-02)
PROC: 0B7 Respiratory System, Dilation (ICD-10-PCS; 2021-12-02)
PROC: 5A1D70Z Performance of Urinary Filtration, Intermittent, Less than 6 Hours Per Day (ICD-10-PCS; 2021-12-06)
PROC: 03C73ZZ Extirpation of Matter from Right Brachial Artery, Percutaneous Approach (ICD-10-PCS; 2021-12-24)
PROC: 03773ZZ Dilation of Right Brachial Artery, Percutaneous Approach (ICD-10-PCS; 2021-12-24)
PROC: 0JH63XZ Insertion of Tunneled Vascular Access Device into Chest Subcutaneous Tissue and Fascia, Percutaneous Approach (ICD-10-PCS; 2021-12-24)
PROC: 02HV33Z Insertion of Infusion Device into Superior Vena Cava, Percutaneous Approach (ICD-10-PCS; 2021-12-24)
PROC: B518ZZA Fluoroscopy of Superior Vena Cava, Guidance (ICD-10-PCS; 2021-12-24)
PROC: B548ZZA Ultrasonography of Superior Vena Cava, Guidance (ICD-10-PCS; 2021-12-24)
PROC: B51WZZZ Fluoroscopy of Dialysis Shunt/Fistula (ICD-10-PCS; 2021-12-24)
PROC: B31HZZZ Fluoroscopy of Right Upper Extremity Arteries (ICD-10-PCS; 2021-12-24)
PROC: B518ZZZ Fluoroscopy of Superior Vena Cava (ICD-10-PCS; 2021-12-24)
PROC: 3E03317 Introduction of Other Thrombolytic into Peripheral Vein, Percutaneous Approach (ICD-10-PCS; 2021-12-24)
PROC: 30233N1 Transfusion of Nonautologous Red Blood Cells into Peripheral Vein, Percutaneous Approach (ICD-10-PCS; 2021-12-28)
PROC: 5A1D70Z Performance of Urinary Filtration, Intermittent, Less than 6 Hours Per Day (ICD-10-PCS; 2021-12-28)
PROC: 5A1D70Z Performance of Urinary Filtration, Intermittent, Less than 6 Hours Per Day (ICD-10-PCS; 2021-12-30)
DX: A41.89 Other specified sepsis (principal); G92.8 Other toxic encephalopathy; E43 Unspecified severe protein-calorie malnutrition; N17.0 Acute kidney failure with tubular necrosis; J12.82 Pneumonia due to coronavirus disease 2019; N18.6 End stage renal disease; U07.1 COVID-19; J96.21 Acute and chronic respiratory failure with hypoxia; J95.03 Malfunction of tracheostomy stoma; Z99.11 Dependence on respirator [ventilator] status; I50.40 Unspecified combined systolic (congestive) and diastolic (congestive) heart failure; I13.2 Hypertensive heart and chronic kidney disease with heart failure and with stage 5 chronic kidney disease, or end stage renal disease; T82.868A Thrombosis due to vascular prosthetic devices, implants and grafts, initial encounter; E83.51 Hypocalcemia; D63.8 Anemia in other chronic diseases classified elsewhere; Y83.8 Other surgical procedures as the cause of abnormal reaction of the patient, or of later complication, without mention of misadventure at the time of the procedure; Y82.8 Other medical devices associated with adverse incidents; Y83.2 Surgical operation with anastomosis, bypass or graft as the cause of abnormal reaction of the patient, or of later complication, without mention of misadventure at the time of the procedure; E66.01 Morbid (severe) obesity due to excess calories; E11.22 Type 2 diabetes mellitus with diabetic chronic kidney disease; J45.909 Unspecified asthma, uncomplicated; Z79.4 Long term (current) use of insulin; Z79.899 Other long term (current) drug therapy; Z99.2 Dependence on renal dialysis; Z79.82 Long term (current) use of aspirin; Z79.891 Long term (current) use of opiate analgesic; Z79.01 Long term (current) use of anticoagulants; Z68.39 Body mass index [BMI] 39.0-39.9, adult; Z86.718 Personal history of other venous thrombosis and embolism; Z98.84 Bariatric surgery status; Y92.89 Other specified places as the place of occurrence of the external cause; Y92.9 Unspecified place or not applicable
CPT/HCPCS: 36415; 36558; 36600; 36905; 71045; 76937; 77001; 80048; 80053; 80202; 80305; 82040; 82270; 82375; 82550; 82553; 82607; 82728; 82746; 82805; 82962; 83036; 83540; 83550; 83605; 83615; 83735; 83880; 83970; 84100; 84145; 84443; 84484; 85014; 85018; 85025; 85044; 85379; 86140; 86703; 86705; 86706; 86709; 86803; 86850; 86900; 86920; 87070; 87077; 87186; 87340; 87426; 90585; 92610; 93005; 93970; 94002; 94003; 94640; 94644; 94660; 97162; 99152; 99153; 99291; C1725; C1750; C1766; C1769; C9113; J0690; J0885; J1100; J1642; J1644; J1650; J1815; J2060; J2270; J2405; J2543; J2704; J2997; J3010; J3370; J3475; J3490; J7040; J7060; J7608; P9016; Q9967; U0003; U0005; G0500